=== PATIENT | female | born 1965 | race Caucasian/White ===

== ENCOUNTER 2018-08-25 00:42 | Inpatient (IN) | payer OTHER, MEDICAID ==
[~2018-08-25] VITALS: Ht 167.6 cm; Wt 68.0 kg
--- NOTE | ~2018-08-25 | PROC ---
[address] [address] PROCEDURE REPORT Name: JAMES CASTANON Room: [address] IN M.R.#: [id number] Admission: 08/25/18 Attend Phys: Ritchie Miranda MD Discharge: 08/27/18 Date of : 63 Report #: [id number] THIS REPORT FOR: //name// For GI report, please see the Provation report in Perceptive 7. By: 0644Medical Records Staff SANTIAGO /WEI
[2018-08-25 00:43] VITALS: BP 146/82
[2018-08-25 01:06] LABS: HEMATOCRIT 42.4 % (37.0-47.0); HEMOGLOBIN 13.7 gm/dL (12.0-15.0); MCH 27.4 pg (26.0-34.0); MCHC 32.3 g/dL (28.0-37.0); MCV 84.9 fL (80.0-100.0); MPV 8.5 fl. (7.2-11.1); NUCLEATED RBCS 0 /100WBC; PLATELET COUNT* 375 thou/uL (150-400); RBC 4.99 mil/uL (4.20-5.00); RDW-CV 13.5 % (10.5-14.5)
[2018-08-25 01:19] LABS: ALBUMIN 3.3 g/dL (3.4-5.0); ALKALINE PHOSPHATASE 105 U/L (46-116); ANION GAP 7 mmol/L (7-16); CALCIUM 8.3 mg/dL (8.5-10.1); CHLORIDE 106 mmol/L (98-107); CO2 26 mmol/L (21-32); CREATININE 0.7 mg/dL (0.6-1.3); GLUCOSE 112 mg/dL (70-99); LIPASE 131 U/L (73-393); POTASSIUM 3.7 mmol/L (3.5-5.1); SGOT 17 U/L (15-37); SGPT 24 U/L (30-65); SODIUM 139 mmol/L (136-145); TOTAL BILIRUBIN 0.3 mg/dL (<0.1-1.0); TOTAL PROTEIN 6.7 g/dL (6.4-8.2); TROPONIN-I LEVEL <0.06 ng/mL (<0.06)
[2018-08-25 01:40] LABS: BUN 12 mg/dL (7-18)
[2018-08-25] MEDS ORDERED: ZOFRAN ODT4 MG PO (02:04)
[2018-08-25 02:15] VITALS: BP 131/80
[2018-08-25 03:02] LABS: ABSOLUTE EOSINOPHILS 0.5 thou/uL (0.0-0.7); ABSOLUTE NEUTROPHILS 14.5 thou/uL (1.6-8.1); ANISOCYTOSIS Occasional; ATYPICAL LYMPHS 1 %; PLATELET ESTIMATE ADEQUATE
--- NOTE | 2018-08-25 03:21 | NUR ---
PT WAS DISCHARGED AND WAS CALLING FROM ROOM TRYING TO FIND A RIDE AND A PLACE TO STAY. PT NOT ABLE TO REACH ANYONE WHEN SHE STARTED TO C/O SEVER ABDOMEN PAIN AND BACK SPASMS, DR SIMONS WENT IN TO SEE PT
[2018-08-25 07:55] VITALS: BP 112/73
[2018-08-25 09:01] LABS: CALCIUM 8.3 mg/dL (8.5-10.1); CREATININE 0.7 mg/dL (0.6-1.3); POTASSIUM 3.9 mmol/L (3.5-5.1)
[2018-08-25 11:00] VITALS: BP 134/80
--- NOTE | 2018-08-25 12:48 | EKG ---
[place] [address] ELECTROCARDIOGRAM REPORT Name: JAMES CASTANON Angy Room: [address] ADM IN [facility].#: [id number] Admission: 08/25/18 Attend Phys: Ritchie Miranda MD Discharge: Date of : 63 Report #: [id number] THIS REPORT FOR: //name// [facility] ED Test Date: 2018-08-25 Test Time: 00:48:42 Pat Name: JAMES CASTANON Department: Room: [facility] Gender: F Freezer Person: [place] : 1965 Requested By: Elza Duong Order Number: [id number] MD: Anselmo Moran Measurements Intervals [place] Rate: 88 P: 38 SD: 170 QRS: 26 QRSD: 84 T: 52 QT: 377 QTc: 457 Interpretive Statements Sinus rhythm Possible left atrial enlargement Anteroseptal infarct, old, possible No previous ECG available for comparison Electronically Signed On 08-25-2018 12:48:30 [employer] by Anselmo Moran [email or web address] <ELECTRONICALLY SIGNED> By: Anselmo Moarn MD, [facility] 08/25/18 1248 0048 Anselmo Moran MD, FACC /EPI
[2018-08-25] MEDS ORDERED: GENTLE LAXATIVE5 M1 PO (14:50)
[2018-08-25] MEDS ORDERED: CARAFATE 1 GM TA1 G1 PO (14:53)
[2018-08-25] MEDS ORDERED: FLONASE 0.05%50 MCG NASAL (14:54)
[2018-08-25] MEDS ORDERED: FOLIC ACID1 MG PO (14:54)
[2018-08-25] MEDS ORDERED: ADULT ASPIRIN81 MG PO (14:55)
[2018-08-25] MEDS ORDERED: HYDROCODON-ACE1 EAC7 PO (14:56)
--- NOTE | 2018-08-25 16:39 | NUR ---
PATIENT ARRIVED ON UNIT FROM ER AT 0930. COMPLETED ADMISSION ASSESSMENT AND HISTORY. 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 PATIENT VERBALIZED UNDERSTANDING. ALERT AND ORIENTED X'S 4. VITAL SIGNS AND SPO2 STABLE. IV CLEAN, FLUIDS INFUSING. PAIN WELL CONTROLLED WITH PAIN MEDS. SKIN INTACT. UP AD LOAN. COMPLETED HOURLY ROUNDING. CALL LIGHT WITHIN REACH. WILL CONTINUE TO MONITOR.
[2018-08-25 20:45] VITALS: BP 134/64
[2018-08-26] VITALS (7 sets, daily range): BP systolic 122–149; BP diastolic 79–94
[2018-08-26 04:43] LABS: ABSOLUTE EOSINOPHILS 0.3 thou/uL (0.0-0.7); ABSOLUTE LYMPHOCYTES 1.4 thou/uL (0.8-5.3); ABSOLUTE MONOCYTES 0.4 thou/uL (0.0-1.2); BASOPHILS 0.3 %; EOSINOPHILS 5.4 %; HEMATOCRIT 39.5 % (37.0-47.0); HEMOGLOBIN 13.1 gm/dL (12.0-15.0); LYMPHOCYTES 22.2 %; MCH 28.3 pg (26.0-34.0); MCHC 33.1 g/dL (28.0-37.0); MCV 85.5 fL (80.0-100.0); MONOCYTES 6.1 %; MPV 9.1 fl. (7.2-11.1); NUCLEATED RBCS 0 /100WBC; PLATELET COUNT* 312 thou/uL (150-400); RBC 4.62 mil/uL (4.20-5.00); RDW-CV 13.3 % (10.5-14.5); WBC 6.1 thou/uL (4.0-11.0)
--- NOTE | 2018-08-26 06:44 | NUR ---
PATIENT HAS SLEPT WELL THROUGHOUT THE NIGHT WITHOUT ANY ISSUES. NO C/O PAIN. VSS ON RA. PATIENT HAS REMAINED NPO DURING THE NIGHT. IV IN LEFT FOREARM-NS @ 100ML/HR. PATIENT INSTRUCTED TO USE CALL LIGHT WHEN NEEDING ASSISTANCE. HOURLY ROUNDS MADE. WILL CONTINUE WITH PLAN OF CARE AND NURSING TO MONITOR.
--- NOTE | 2018-08-26 12:18 | NUR ---
pt returned from egd. pt is alert and oriented. pt is on room air. pt denies any pain or nausea at this time. iv fluids rehooked back up. will continue to monitor.
[2018-08-26 14:35] LABS: URINE BILIRUBIN NEGATIVE (Negative); URINE BLOOD TRACE (Negative); URINE CLARITY CLEAR; URINE COLOR YELLOW; URINE GLUCOSE-RANDOM NEGATIVE (Negative); URINE KETONES TRACE (Negative); URINE LEUKOCYTES-REFLEX NEGATIVE (Negative); URINE NITRITE-REFLEX NEGATIVE (Negative); URINE PROTEIN NEGATIVE (Negative); URINE UROBILINOGEN 0.2 E.U./dl (0.2-1.0)
--- NOTE | 2018-08-26 17:25 | NUR ---
PT REMAINED ALERT AND ORIENTED. PT HAD AN EGD COMPLETED TODAY. REGULAR DIET. PT HAS BEEN SLEEPING TODAY. FALL RISK PRECAUTIONS IN PLACE. HOURLY ROUNDING COMPLETED. WILL CONTINUE TO MONITOR.
--- NOTE | 2018-08-27 04:20 | NUR ---
PATIENT HAS SLEPT WELL THROUGHOUT THE NIGHT. VSS ON RA. PATIENT UP AD-LOAN AND STEADY. IV INFILTRATED AND PATIENT REFUSED NEW IV TO BE PLACED AT THIS TIME. NO C/O PAIN. PATIENT INSTRUCTED TO USE CALL LIGHT WHEN NEEDING ASSISTANCE. HOURLY ROUNDS MADE. WILL CONTINUE WITH PLAN OF CARE AND NURSING TO MONITOR
[2018-08-27 05:13] LABS: ABSOLUTE EOSINOPHILS 0.3 thou/uL (0.0-0.7); ABSOLUTE LYMPHOCYTES 1.6 thou/uL (0.8-5.3); ABSOLUTE MONOCYTES 0.5 thou/uL (0.0-1.2); ABSOLUTE NEUTROPHILS 5.4 thou/uL (1.6-8.1); BASOPHILS 0.4 %; EOSINOPHILS 3.8 %; HEMATOCRIT 42.7 % (37.0-47.0); HEMOGLOBIN 14.1 gm/dL (12.0-15.0); LYMPHOCYTES 20.3 %; MCHC 32.9 g/dL (28.0-37.0); MONOCYTES 5.9 %; MPV 8.7 fl. (7.2-11.1); NUCLEATED RBCS 0 /100WBC; PLATELET COUNT* 384 thou/uL (150-400); POLYS 69.6 %; RBC 5.02 mil/uL (4.20-5.00); RDW-CV 13.2 % (10.5-14.5); WBC 7.8 thou/uL (4.0-11.0)
[2018-08-27 08:00] VITALS: BP 142/80
[2018-08-27] MEDS ORDERED: PANTOPRAZOLE SO40 M1 PO (09:36)
[2018-08-27 10:50] VITALS: BP 142/80
[2018-08-27 16:00] VITALS: BP 146/78
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
[2018-08-27 17:30] VITALS: BP 146/78
--- NOTE | 2018-08-28 14:08 | PATH ---
[address] [address] PATHOLOGY RPT PROCEDURE Name: KINAJAMES Angy Room: [address] IN M.R.#: [id number] Admission: 08/25/18 Date of : 63 Discharge: 08/27/18 Report #: [id number] Path Case #: [id number] [facility] Accession Number: [id number] . 01 Material submitted: . DUODENAL BIOPSY . 01 Clinical history: . None provided . 02 Diagnosis: Duodenum "duodenal biopsy": - Mild increase in lamina propria of chronic inflammation admixed with eosinophils and neutrophils consistent with duodenitis. - The findings are nonspecific. There is occasional blunting of villous pattern. (SHA:juana; 08/28/2018) QMS/08/28/2018 . 02 Comment: The differential includes early sprue-like changes or nonspecific duodenitis. . Suggest clinical and laboratory correlation and rule out early sprue. There is no evidence of atypia or malignancy. (SHA:juana; 08/28/2018) . 02 Electronically signed: . Jeffery Boudreaux MD, Pathologist NPI- [id number] . 01 Gross description: . Received in formalin labeled "James Castanon, duodenal BX," are 4 segments of hollis soft tissue measuring 1.5 x 0.6 x 0.2 cm in aggregate dimensions and ranging from 0.3 to 0.5 cm in maximum dimension. The specimen is submitted entirely in cassette A1. (TSD; 08/27/2018) TOB/TOB . 02 Pathologist provided ICD-10: K29.80 . 02 CPT . 055075 Specimen Comment: A courtesy copy of this report has been sent to Specimen Comment: [phone], . Specimen Comment: Report sent to / DR NOBLES Specimen Comment: A duplicate report has been [place] [address] PATHOLOGY RPT PROCEDURE Name: JAMES CASTANON Room: [address] IN [facility].#: [id number] Admission: 08/25/18 Date of : 63 Discharge: 08/27/18 Report #: [id number] Path Case #: [id number] updates. Performed at: 01 [facility] Radha Carr [address], [place], [place] [id number] MD Daren Cancino MD Phone: [phone] Performed at: [address] [place], [place], [place] [id number] MD Jesus Guerrero MD Phone: [phone]
--- NOTE | 2018-08-28 14:51 | CON ---
[address] [address] CONSULTATION Name: KINAJAMES Angy Room: [address] IN M.R.#: [id number] Admission: 08/25/18 Attend Phys: Ritchie Miranda MD Discharge: 08/27/18 Date of : 63 Report #: [id number] THIS REPORT FOR: //name// CC: Ritchie Miranda MD [facility] physician/PCP DATE OF SERVICE: 08/25/2018 REQUESTING PHYSICIAN: Ritchie Miranda M.D. The patient reports that she does not have any primary care physician. HISTORY OF PRESENT ILLNESS: This is a 53-year-old female with no previous history of upper or lower endoscopies, who presented to hospital with intermittent epigastric pain and mild GERD symptoms. She denies dysphagia, odynophagia, nausea and vomiting. Upon admission, the patient had imaging study, which showed dilated pancreatic duct to 7 mm and also common bile duct was 16 mm in size. The patient admits to previous history of cholecystectomy. Subsequent MRI was performed, which is confirming the finding in the CT. There was no evidence of choledocholithiasis. PAST MEDICAL HISTORY: Essentially unremarkable except history of gallbladder disease and cholecystectomy. The patient also known to have diverticulosis. ALLERGIES: No known drug allergy. MEDICATIONS: The patient reports that she does not take any meds. SOCIAL HISTORY: The patient denies tobacco or alcohol use. FAMILY HISTORY: Negative for GI malignancy. PHYSICAL EXAMINATION: VITAL SIGNS: Reveals blood pressure of 131/80, respirations 16, pulse 91, temperature 97.9. LUNGS: Clear. CARDIOVASCULAR: Regular. ABDOMEN: Soft, mildly tender to palpation in the epigastric region. Bowel sounds are positive. NEUROLOGIC: The patient is alert and oriented x 3. There is no focal neurologic deficit. LABORATORY DATA: Reveal sodium of 140, potassium 3.9, BUN is 10, creatinine 0.7, glucose is 102. AST is 17, ALT is 24, alkaline phosphatase is 105, [place] [address] CONSULTATION Name: JAMES CASTANON Room: [address] [place] [facility].#: [id number] Admission: 08/25/18 Attend Phys: Ritchie Miranda MD Discharge: 08/27/18 Date of : 63 Report #: [id number] is 8327 and at repeat, this dropped to 131. Albumin is 3.3. WBC is 6.1, hemoglobin 13.1 with platelets of 312. IMAGING: As discussed above. ASSESSMENT AND PLAN: The patient with what appears to be pancreatitis as her pancreatic enzymes initially were elevated and then normalized. She also complains of intermittent dyspepsia and GERD symptoms. We will consider upper endoscopy. If this is negative, we will consider endoscopic ultrasound to further evaluate her biliary duct and pancreatic duct dilatation. <ELECTRONICALLY SIGNED> By: Nickie Madrigal MD 08/28/18 1451 0822 [id number] Madrigal MD /dorothea
== END 2018-08-27 20:04 | disposition home or self-care (01) | DRG 391 ==
LOC: M.ERS 00:42 → M.TBA-ER 05:07 → M.ORTHSURG 05:07
PROVIDERS: Emergency Medicine; Internal Medicine; ADMIT Internal Medicine
PROC: 0DB98ZX Excision of Duodenum, Via Natural or Artificial Opening Endoscopic, Diagnostic (ICD-10-PCS; principal; 2018-08-26)
DX: A08.4 Viral intestinal infection, unspecified (principal); K85.90 Acute pancreatitis without necrosis or infection, unspecified; R65.10 Systemic inflammatory response syndrome (SIRS) of non-infectious origin without acute organ dysfunction; K21.0 Gastro-esophageal reflux disease with esophagitis; I10 Essential (primary) hypertension; K86.89 Other specified diseases of pancreas; K44.9 Diaphragmatic hernia without obstruction or gangrene; K31.89 Other diseases of stomach and duodenum; S10.91XA Abrasion of unspecified part of neck, initial encounter; X58.XXXA Exposure to other specified factors, initial encounter; Y93.89 Activity, other specified; Y92.89 Other specified places as the place of occurrence of the external cause; Y99.8 Other external cause status; Z90.49 Acquired absence of other specified parts of digestive tract

== ENCOUNTER 2019-02-05 11:21 | Emergency (ER) | payer OTHER, MEDICAID ==
[~2019-02-05] VITALS: Ht 167.6 cm; Wt 68.0 kg
[~2019-02-05 11:21] MED LIST: ADULT ASPIRIN81 MG PO; CARAFATE 1 GM TA1 G1 PO; FLONASE 0.05%50 MCG NASAL; FOLIC ACID1 MG PO; GENTLE LAXATIVE5 M1 PO; HYDROCODON-ACE1 EAC7 PO; PANTOPRAZOLE SO40 M1 PO; ZOFRAN ODT4 MG PO
[2019-02-05 12:45] VITALS: BP 154/98
== END 2019-02-05 13:18 | disposition home or self-care (01) ==
LOC: M.ERS 11:21
DX: S62.635A Displaced fracture of distal phalanx of left ring finger, initial encounter for closed fracture (principal); M20.012 Mallet finger of left finger(s); K21.9 Gastro-esophageal reflux disease without esophagitis; Z90.49 Acquired absence of other specified parts of digestive tract; W18.39XA Other fall on same level, initial encounter; Y93.89 Activity, other specified; Y92.89 Other specified places as the place of occurrence of the external cause; Y99.8 Other external cause status